=== PATIENT | female | born 1975 | race Hispanic/Latino ===

== ENCOUNTER 2016-07-06 01:54 | Emergency (ER) | payer OTHER ==
[2016-07-06 02:02] VITALS: BMI 26.6
--- NOTE | 2016-07-06 02:15 | ED PDOC ---
Arrival/HPI - General Time Seen by Provider: 07/06/16 01:59 Historian: Patient - History of Present Illness Narrative History of Present Illness (Text): 07/06/16 02:12 Hanna Baxter is a 41 year old female, with a history of bipolar disorder and WPW syndrome, presents to the emergency department complaining of left sided chest pain radiating to left arm for past 20 minutes. States that symptoms are accompanied with occasional palpitations. Denies any fever, chills, headache, dizziness, nausea, vomiting, diaphoresis, weakness, back pain, urinary symptoms , or any other complaints at this time. Time/Duration: 1/2 hour Symptom Onset: Gradual Symptom Course: Unchanged Severity Level: Mild Activities at Onset: Light Past Medical History - Provider Review Nursing Documentation Reviewed: Yes - Past History Past History: No Previous - Infectious Disease Hx of Infectious Diseases: None - Tetanus Immunization Tetanus Immunization: Unknown - Past Medical History Past Medical History: No Previous - Hematological/Oncological Hx Blood Transfusions: No Hx Blood Transfusion Reaction: No - Musculoskeletal/Rheumatological Hx Falls: Yes - Psychiatric Hx Depression: Yes (STATES SHE SEES A PSYCHIATRIST) Hx Emotional Abuse: No (unknown) Hx Physical Abuse: No (unknown) Hx Substance Use: No - Past Surgical History Past Surgical History: Unable to Obtain - Surgical History Hx Amputation: No Hx Appendectomy: No Hx Cholecystectomy: No Hx Gastric Bypass Surgery: No Hx Hysterectomy: No Hx Inguinal Hernia Repair: No - Anesthesia Hx Anesthesia Reactions: No Hx Malignant Hyperthermia: No - Suicidal Assessment Feels Threatened In Home Enviroment: No Family/Social History - Physician Review Nursing Documentation Reviewed: Yes Family/Social History: No Known Family HX Smoking Status: Current Some Days Smoker Hx Alcohol Use: Yes (UNABLE TO TELL HOW MUCH FOR NOW BUT MENTIONED DRANK A BIG GLASS OF CLUB SOD) Hx Substance Use: No Hx Substance Use Treatment: No Allergies/Home Meds Allergies/Adverse Reactions: Allergies diphenhydramine [From Benadryl] Allergy (Verified 07/06/16 02:00) RASH peanut Allergy (Verified 07/06/16 02:00) ANGIOEDEMA shellfish derived Allergy (Verified 07/06/16 02:00) ANGIOEDEMA Home Medications: Home Meds Medication Instructions Recorded Confirmed [place] Carbonate [[place] Carb] 300 mg PO TID 04/27/12 11/30/13 Review of Systems - Physician Review All systems were reviewed & negative as marked: Yes - Review of Systems Constitutional: Normal. absent: Fatigue, Fevers Respiratory: Normal. absent: SOB, Cough, Sputum Cardiovascular: Chest Pain, Palpitations Gastrointestinal: Normal. absent: Abdominal Pain, Nausea, Vomiting Genitourinary Female: Normal Musculoskeletal: Other (left arm numbness ) Neurological: Normal. absent: Headache, Dizziness Psychiatric: Normal Physical Exam Vital Signs Reviewed: Yes Vital Signs Temp Pulse Resp BP Pulse Ox 07/06/16 04:00 64 16 129/79 97 07/06/16 02:15 98.2 F 62 16 135/92 H 99 Temperature: Afebrile Blood Pressure: Normal Pulse: Regular Respiratory Rate: Normal Appearance: Positive for: Well-Appearing, Non-Toxic, Comfortable Pain Distress: None Mental Status: Positive for: Alert and Oriented X 3 - Systems Exam Head: Present: Atraumatic, Normocephalic Pupils: Present: PERRL Extroacular Muscles: Present: EOMI Conjunctiva: Present: Normal Mouth: Present: Moist Mucous Membranes Respiratory/Chest: Present: Clear to Auscultation, Good Air Exchange. No: Respiratory Distress, Accessory Muscle Use Cardiovascular: Present: Regular Rate and Rhythm, Normal S1, S2. No: Murmurs Abdomen: Present: Normal Bowel Sounds. No: Tenderness, Distention, Peritoneal Signs Upper Extremity: Present: Normal Inspection. No: Cyanosis, Edema Lower Extremity: Present: Normal Inspection. No: Edema Neurological: Present: GCS=15, CN II-XII Intact, Speech Normal, Motor Func Grossly Intact, Normal Sensory Function Skin: Present: Warm, Dry, Normal Color. No: Rashes Psychiatric: Present: Alert, Oriented x 3, Normal Insight, Normal Concentration Medical Decision Making ED Course and Treatment: 07/06/16 02:17 Impression: A 41 year old female who presents to the emergency department complaining of left sided chest pain radiating to left arm for past 20 minutes. Plan: -- EKG -- Labs, cardiac enzymes -- Chest X-ray -- Reassess and disposition Progress Notes: 07/06/16 04:30 Chest X-ray interpreted by me: No acute processes. EKG interpreted by me: NSR @ 66 bpm. No acute changes. 07/06/16 04:43 The patient is choosing to leave against medical advice. I have personally explained to the patient that choosing to do so may result in permanent bodily harm or . I have discussed at great length that without further evaluation and monitoring there may be unforeseen circumstances and/or deterioration causing permanent bodily harm or as a result of their choice. The patient is alert, oriented, and shows the mental capacity to make clear decisions regarding the patients health care at this time. The patient continues to wish to leave against medical advice. The patient has been advised that they should return to the emergency room immediately if they change their mind at any time, or if their condition begins to change or worsen in any way.. - Lab Interpretations Lab Results: 07/06/16 02:45 07/06/16 02:45 Lab Results 07/06/16 02:45: WBC 11.3 H D, RBC 3.90, Hgb 12.2, Hct 36.4, MCV 93.3, MCH 31.3, MCHC 33.5, RDW 12.4, Plt Count 300, MPV 9.8 07/06/16 02:45: Sodium 137, Potassium 3.6, Chloride 103, Carbon Dioxide 28, Anion Gap 10, BUN 15, Creatinine 0.7, Est GFR ( Amer) > 60, Est GFR (Non- Af Amer) > 60, Random Glucose 106, Calcium 9.1, Total Bilirubin 0.3, AST 25, ALT 29, Alkaline Phosphatase 81, Lactate Dehydrogenase 304 L, Total Creatine Kinase 37, Troponin I < 0.01, Total Protein 6.4, Albumin 3.7, Globulin 2.7, Albumin/Globulin Ratio 1.4 07/06/16 02:45: PT 10.0, INR 0.93, APTT 27.9 - RAD Interpretation Radiology Orders: 07/06/16 02:02 CHEST PORTABLE [RAD] Stat - Medication Orders Current Medication Orders: Discontinued Medications Aspirin (Aspirin) 325 mg PO ONCE STA Stop: 07/06/16 04:30 Last Admin: 07/06/16 04:46 Dose: - Scribe Statement The provider has reviewed the documentation as recorded by the Bryan Dowd Provider Attestation: All medical record entries made by the Mireyaibangela were at my direction and personally dictated by me. I have reviewed the chart and agree that the record accurately reflects my personal performance of the history, physical exam, medical decision making, and the department course for this patient. I have also personally directed, reviewed, and agree with the discharge instructions and disposition. Disposition/Present on Arrival - Present on Arrival Any Indicators Present on Arrival: No History of DVT/PE: No History of Uncontrolled Diabetes: No Urinary Catheter: No History Surgical Site Infection Following: None - Disposition Have Diagnosis and Disposition been Completed?: Yes Diagnosis: Chest pain Disposition: AGAINST MEDICAL ADVICE Disposition Time: 04:40 Condition: GOOD Discharge Instructions (ExitCare): Chest Pain (ED) Referrals: Aashish Hayes, [Non-Staff] - Follow up with primary
[2016-07-06 02:19] VITALS: RESP 16; TEMP 98.2
[2016-07-06 02:56] LABS: HEMATOCRIT 36.4 % (36.0-48.0); MEAN CELL VOLUME 93.3 fL (80.0-105.0); MEAN CORPUSCULAR HEMOGLOBIN 31.3 pg (25.0-35.0); MEAN CORPUSCULAR HGB CONC 33.5 g/dl (31.0-37.0); MEAN PLATELET VOLUME 9.8 fl (7.0-11.0); RED CELL DISTRIBUTION WIDTH 12.4 % (11.5-14.5); WHITE BLOOD COUNT 11.3 [, 10^3/ul] (4.5-11.0)
[2016-07-06 03:08] LABS: INR 0.93 (0.93-1.08); PARTIAL THROMBOPLASTIN TIME 27.9 Seconds (23.7-30.8)
[2016-07-06 03:19] LABS: ALB/GLOB RATIO 1.4 (1.1-1.8); ALKALINE PHOSPHATASE 81 U/L (38-133); ALT/SGPT 29 U/L (7-56); AST/SGOT 25 U/L (15-39); BILIRUBIN,TOTAL 0.3 mg/dL (0.2-1.3); BLOOD UREA NITROGEN 15 mg/dL (7-21); CALCIUM 9.1 mg/dL (8.4-10.5); CARBON DIOXIDE 28 mmol/L (21-33); CHLORIDE 103 mmol/L (98-107); GFR AFRICAN-AMERICAN > 60; GLUCOSE,RANDOM 106 mg/dL (70-110); POTASSIUM 3.6 mmol/L (3.6-5.0); SODIUM 137 mmol/L (132-148); TOTAL PROTEIN 6.4 g/dL (5.8-8.3)
[2016-07-06 03:34] LABS: TROPONIN I < 0.01 ng/mL
[2016-07-06 04:16] VITALS: BP 129/79; PULSE 64; O2SAT 97
--- NOTE | 2016-07-06 07:55 | RAD ---
HISTORY: chest pain COMPARISON: Comparison is made to 04/27/2012 FINDINGS: LUNGS: No active pulmonary disease. PLEURA: No significant pleural effusion identified, no pneumothorax apparent. CARDIOVASCULAR: Normal. OSSEOUS STRUCTURES: No significant abnormalities. VISUALIZED UPPER ABDOMEN: Normal. OTHER FINDINGS: None. IMPRESSION: No active disease.
--- NOTE | 2016-07-06 09:54 | CARD ---
APPROVED REPORT EKG Measurement Heart [id number] <Conclusion> Normal sinus rhythm Normal ECG
== END 2016-07-06 04:46 | disposition left against medical advice (07) ==
LOC: ED 01:54
DX: R07.9 Chest pain, unspecified (principal)

== ENCOUNTER 2016-09-16 19:53 | Observation (INO) | payer OTHER ==
[2016-09-16 20:05] VITALS: BMI 28.3
[2016-09-16 20:09] VITALS: RESP 18; TEMP 98.6
[2016-09-16] MEDS ORDERED: Alum-Mag Hydrox-Simethicone Susp (30 mL) PO STA (20:27)
[2016-09-16] MEDS ORDERED: Sodium Chloride 0.9% 1,000 ML IV STA (20:27)
--- NOTE | 2016-09-16 20:38 | ED PDOC ---
Arrival/HPI - General Chief Complaint: Abdominal Pain Time Seen by Provider: 09/16/16 20:07 - History of Present Illness Narrative History of Present Illness (Text): 09/16/16 20:34 CC: abdominal pain RLQ 2 days This patient is a 41yo F w/ a PMHx of WPW syndrome s/p ablation, anxiety/ bipolar disorder, polysubstance abuse who is presenting to the ED for a 2d history of unrelenting RLQ pain. Patient states she has had kidney stones in the past and this pain feels uniquely different than her kidney stones. Denies any abdominal surgeries. Passing flatus and BM; BM are painful in the RLQ as well as the rectum. The patient admits to one episode of vomiting today, does not have the desire to eat as well. Deneis fevers/chills, SIERRA, CP, SOB, diarrhea , dysuria/freq/urg, or lower extremity pain/swelling. PMhx: WPW syndrome, anxiety/bipolar disorder, polysubstance abuse Meds: [place] and some other unknown mood stabilizing enhancer Surgeries: Denies; however got stitches one week ago "here" even though we have no record of it FamHx: Denies Allergies: Benadryl, Peanuts, Shellfish Social: Lives at home, denies EtOH, admits to 1ppd for 30 years, denies other illicit drugs although has history of polysubstance abuse (Robe He) Past Medical History - Provider Review Nursing Documentation Reviewed: Yes - Travel History Have you recently traveled outside [place] w/in the past 3 mons?: No - Past History Past History: No Previous - Infectious Disease Hx of Infectious Diseases: None - Tetanus Immunization Tetanus Immunization: Unknown - Past Medical History Past Medical History: No Previous - Hematological/Oncological Hx Blood Transfusions: No Hx Blood Transfusion Reaction: No - Musculoskeletal/Rheumatological Hx Falls: Yes - Gastrointestinal Hx Gastrointestinal Disorders: No - Genitourinary/Gynecological Hx Genitourinary Disorders: No - Psychiatric Hx Psychophysiologic Disorder: Yes Hx Depression: Yes (STATES SHE SEES A PSYCHIATRIST) Hx Emotional Abuse: No (unknown) Hx Physical Abuse: No (unknown) Hx Substance Use: No - Past Surgical History Past Surgical History: Unable to Obtain - Surgical History Hx Amputation: No Hx Appendectomy: No Hx Cholecystectomy: No Hx Gastric Bypass Surgery: No Hx Hysterectomy: No - Anesthesia Hx Anesthesia: No Hx Anesthesia Reactions: No Hx Malignant Hyperthermia: No - Suicidal Assessment Feels Threatened In Home Enviroment: No Family/Social History - Physician Review Nursing Documentation Reviewed: Yes Family/Social History: No Known Family HX Smoking Status: Heavy Smoker > 10 Cigarettes Daily Hx Alcohol Use: Yes Frequency of alcohol use: Socially Hx Substance Use: No Hx Substance Use Treatment: No Allergies/Home Meds Allergies/Adverse Reactions: Allergies diphenhydramine [From Benadryl] Allergy (Verified 09/16/16 20:04) RASH peanut Allergy (Verified 09/16/16 20:04) ANGIOEDEMA shellfish derived Allergy (Verified 09/16/16 20:04) ANGIOEDEMA Home Medications: Home Meds Medication Instructions Recorded Confirmed [place] Carbonate [[place] Carb] 1,200 mg PO DAILY 04/27/12 09/16/16 Methotrexate Sodium [Trexall] 10 g PO DAILY 09/16/16 09/16/16 Review of Systems - Review of Systems Constitutional: absent: Fatigue, Weight Change, Fevers Eyes: absent: Vision Changes ENT: absent: Hearing Changes, Tinnitus Respiratory: absent: SOB, Cough Cardiovascular: absent: Chest Pain Gastrointestinal: Abdominal Pain, Stool Changes, Nausea, Vomiting. absent: Diarrhea, Appetite Changes, Hematochezia Genitourinary Female: absent: Dysuria, Frequency Musculoskeletal: absent: Arthralgias, Back Pain Skin: absent: Rash, Pruritis Neurological: absent: Headache Endocrine: absent: Diaphoresis Hemo/Lymphatic: absent: Adenopathy, Easy Bleeding Psychiatric: absent: Anxiety Physical Exam Temperature: Afebrile Blood Pressure: Normal Pulse: Regular Respiratory Rate: Normal Appearance: Positive for: Well-Appearing, Non-Toxic (strange affect responding inappropriately to questions) Pain Distress: Mild Mental Status: Positive for: Alert and Oriented X 3 - Systems Exam Head: Present: Atraumatic Pupils: Present: PERRL Extroacular Muscles: Present: EOMI Conjunctiva: Present: Normal Mouth: Present: Moist Mucous Membranes Neck: Present: Normal Range of Motion. No: Meningeal Signs Respiratory/Chest: Present: Clear to Auscultation, Good Air Exchange. No: Respiratory Distress, Accessory Muscle Use Cardiovascular: Present: Regular Rate and Rhythm, Normal S1, S2. No: Murmurs Abdomen: Present: Tenderness (RLQ), Normal Bowel Sounds. No: Distention, Peritoneal Signs, Rebound, Guarding, Rovsing's Sign Present, Hernias, Ostomy Tubes, Mass/Organomegaly, Scars Back: Present: Normal Inspection. No: CVA Tenderness Upper Extremity: Present: Normal Inspection. No: Cyanosis, Edema Lower Extremity: Present: Normal Inspection. 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 Van (Robe He) 09/16/16 22:33 41 yo female c/o abdominal pain. r/o appy vs colitis vs cysstitis. Pelvic exam normal. Agree with resident history and physical, disposition and plan. Abdomen soft. Tender in epigastric and RLQ. Labs reviewed. WBC mildly elevated. UA negative. Case signed out to Dr. Van to f /u CT, reevaluate and disposiition. (Trent Pope) - Lab Interpretations Lab Results: 09/16/16 20:55 09/16/16 20:55 Lab Results 09/16/16 20:55: Alcohol, Quantitative < 10 09/16/16 20:55: Sodium 136, Potassium 3.7, Chloride 103, Carbon Dioxide 24, Anion Gap 13, BUN 9, Creatinine 0.7, Est GFR ( Amer) > 60, Est GFR (Non- Af Amer) > 60, Random Glucose 114 H, Calcium 9.7, Total Bilirubin 0.7, AST 23, ALT 21, Alkaline Phosphatase 57, Total Protein 7.2, Albumin 4.4, Globulin 2.8, Albumin/Globulin Ratio 1.6, Lipase 75 09/16/16 20:55: WBC 11.3 H, RBC 4.07, Hgb 13.0, Hct 38.7, MCV 95.1, MCH 31.9, MCHC 33.6, RDW 12.3, Plt Count 310, MPV 10.0, Gran % 67.0, Lymph % (Auto) 26.2, [place] % (Auto) 4.5, Eos % (Auto) 2.0, Baso % (Auto) 0.3, Gran # 7.54 H, Lymph # 3.0, [place] # 0.5, Eos # 0.2, Baso # 0.03 09/16/16 20:40: Urine Opiates Screen Negative, Urine Methadone Screen Negative, Ur Barbiturates Screen Negative, Ur Phencyclidine Scrn Negative, Ur Amphetamines Screen Negative, U Benzodiazepines Scrn Negative, U Oth Cocaine Metabols Negative, U Cannabinoids Screen Negative 09/16/16 20:40: Urine Color Straw, Urine Appearance Clear, Urine pH 6.0, Ur Specific [place] <= 1.005, Urine Protein Negative, Urine Glucose (UA) Negative, Urine Ketones Negative, Urine Blood Negative, Urine Nitrate Negative, Urine Bilirubin Negative, Urine Urobilinogen 0.2, Ur Leukocyte Esterase Negative, Urine HCG, Qual Negative - RAD Interpretation Radiology Orders: 09/16/16 20:30 ABDOMEN & PELVIS [ABD PELVIS PO & IV CONTRAST] [CT] Stat - Medication Orders Current Medication Orders: Discontinued Medications Al Hydrox/Mg Hydrox/Simethicone (Maalox Plus 30 Ml) 30 ml PO STAT STA Stop: 09/16/16 20:28 Last Admin: 09/16/16 20:50 Dose: 30 ml Sodium Chloride (Sodium Chloride 0.9%) 1,000 mls @ 999 mls/hr IV .Q1H1M STA Stop: 09/16/16 21:27 Last Admin: 09/16/16 20:50 Dose: 999 mls/hr Iodixanol (Visipaque 320 Mg/Ml 100 Ml) Confirm Administered Dose 100 ml IV .STK- MED ONE Stop: 09/16/16 22:00 Iohexol (Omnipaque 240 (50 Ml)) Confirm Administered Dose 50 ml .ROUTE .STK-MED ONE Stop: 09/16/16 21:29 Ketorolac Tromethamine (Toradol) 30 mg IVP STAT STA Stop: 09/16/16 20:34 Last Admin: 09/16/16 20:50 Dose: 30 mg Ondansetron HCl (Zofran Inj) 4 mg IVP STAT STA Stop: 09/16/16 20:28 Last Admin: 09/16/16 20:50 Dose: 4 mg Disposition/Present on Arrival - Present on Arrival Any Indicators Present on Arrival: No History of DVT/PE: No History of Uncontrolled Diabetes: No Urinary Catheter: No History of Decub. Ulcer: No History Surgical Site Infection Following: None - Disposition Have Diagnosis and Disposition been Completed?: No Disposition Time: 22:29 - Disposition Diagnosis: Abdominal pain Condition: FAIR Referrals: PCP,NO [Primary Care Provider] - Follow up with primary
[2016-09-16 20:59] LABS: URINE BILIRUBIN NEGATIVE (NEGATIVE); URINE BLOOD NEGATIVE (NEGATIVE); URINE GLUCOSE (UA) NEGATIVE (NEGATIVE); URINE LEUKOCYTE ESTERASE NEGATIVE Leu/uL (NEGATIVE); URINE NITRATE NEGATIVE (NEGATIVE); URINE PROTEIN NEGATIVE mg/dL (<30 mg/dL); URINE UROBILINOGEN 0.2 E.U./dL (<1 E.U./dL)
[2016-09-16 21:08] LABS: BASO # 0.03 K/mm3 (0.0-2.0); BASO % 0.3 % (0.0-3.0); EOS # 0.2 (0.0-0.7); GRAN # 7.54 (1.4-6.5); LYMPH % 26.2 % (22.0-35.0); MEAN CELL VOLUME 95.1 fL (80.0-105.0); MEAN CORPUSCULAR HEMOGLOBIN 31.9 pg (25.0-35.0); MEAN CORPUSCULAR HGB CONC 33.6 g/dl (31.0-37.0); MONO # 0.5 (0.1-0.6); MONO % 4.5 % (1.0-6.0); PLATELET COUNT 310 10^3/uL (120.0-450.0); RBC 4.07 10^6/uL (3.5-6.1); RED CELL DISTRIBUTION WIDTH 12.3 % (11.5-14.5); WHITE BLOOD COUNT 11.3 10^3/ul (4.5-11.0)
[2016-09-16 21:10] LABS: HCG,QUALITATIVE URINE NEGATIVE (NEGATIVE); URINE APPEARANCE CLEAR (CLEAR); URINE COLOR STRAW (YELLOW)
[2016-09-16 21:18] LABS: BARBITURATES, UR NEGATIVE (NEGATIVE); BENZODIAZEPINES, UR NEGATIVE (NEGATIVE); OPIATES, UR NEGATIVE (NEGATIVE); PHENCYCLIDINE, UR NEGATIVE (NEGATIVE)
[2016-09-16 21:18] LABS: ALB/GLOB RATIO 1.6 (1.1-1.8); ALBUMIN 4.4 g/dL (3.0-4.8); ALT/SGPT 21 U/L (7-56); AST/SGOT 23 U/L (15-39); BLOOD UREA NITROGEN 9 mg/dL (7-21); CALCIUM 9.7 mg/dL (8.4-10.5); GFR AFRICAN-AMERICAN > 60; GFR NON-AFRICAN AMERICAN > 60; LIPASE 75 U/L (23-300)
[2016-09-16] MEDS ORDERED: Iohexol 240 (50 ml) ONE (21:28)
[2016-09-16] MEDS ORDERED: Iodixanol 320 MG/ML 100 ML BOTTLE IV ONE (21:59)
--- NOTE | 2016-09-16 22:33 | ED PDOC ---
Physical Exam Vital Signs Temp Pulse Resp BP Pulse Ox 09/16/16 22:29 62 18 150/89 100 09/16/16 20:08 98.6 F 73 18 134/91 H 98 Medical Decision Making ED Course and Treatment: 09/16/16 22:30 Patient signed out to me by Dr. Pope due to change of shift. Pending CT results. Patient presents with abdominal RLQ tenderness, labs unremarkable. - Lab Interpretations Lab Results: 09/16/16 20:55 09/16/16 20:55 Lab Results 09/16/16 20:55: Alcohol, Quantitative < 10 09/16/16 20:55: Sodium 136, Potassium 3.7, Chloride 103, Carbon Dioxide 24, Anion Gap 13, BUN 9, Creatinine 0.7, Est GFR ( Amer) > 60, Est GFR (Non- Af Amer) > 60, Random Glucose 114 H, Calcium 9.7, Total Bilirubin 0.7, AST 23, ALT 21, Alkaline Phosphatase 57, Total Protein 7.2, Albumin 4.4, Globulin 2.8, Albumin/Globulin Ratio 1.6, Lipase 75 09/16/16 20:55: WBC 11.3 H, RBC 4.07, Hgb 13.0, Hct 38.7, MCV 95.1, MCH 31.9, MCHC 33.6, RDW 12.3, Plt Count 310, MPV 10.0, Gran % 67.0, Lymph % (Auto) 26.2, [place] % (Auto) 4.5, Eos % (Auto) 2.0, Baso % (Auto) 0.3, Gran # 7.54 H, Lymph # 3.0, [place] # 0.5, Eos # 0.2, Baso # 0.03 09/16/16 20:40: Urine Opiates Screen Negative, Urine Methadone Screen Negative, Ur Barbiturates Screen Negative, Ur Phencyclidine Scrn Negative, Ur Amphetamines Screen Negative, U Benzodiazepines Scrn Negative, U Oth Cocaine Metabols Negative, U Cannabinoids Screen Negative 09/16/16 20:40: Urine Color Straw, Urine Appearance Clear, Urine pH 6.0, Ur Specific [place] <= 1.005, Urine Protein Negative, Urine Glucose (UA) Negative, Urine Ketones Negative, Urine Blood Negative, Urine Nitrate Negative, Urine Bilirubin Negative, Urine Urobilinogen 0.2, Ur Leukocyte Esterase Negative, Urine HCG, Qual Negative - RAD Interpretation Radiology Orders: 09/16/16 20:30 ABDOMEN & PELVIS [ABD PELVIS PO & IV CONTRAST] [CT] Stat - Medication Orders Current Medication Orders: Discontinued Medications Al Hydrox/Mg Hydrox/Simethicone (Maalox Plus 30 Ml) 30 ml PO STAT STA Stop: 09/16/16 20:28 Last Admin: 09/16/16 20:50 Dose: 30 ml Sodium Chloride (Sodium Chloride 0.9%) 1,000 mls @ 999 mls/hr IV .Q1H1M STA Stop: 09/16/16 21:27 Last Admin: 09/16/16 20:50 Dose: 999 mls/hr Iodixanol (Visipaque 320 Mg/Ml 100 Ml) Confirm Administered Dose 100 ml IV .STK- MED ONE Stop: 09/16/16 22:00 Iohexol (Omnipaque 240 (50 Ml)) Confirm Administered Dose 50 ml .ROUTE .STK-MED ONE Stop: 09/16/16 21:29 Ketorolac Tromethamine (Toradol) 30 mg IVP STAT STA Stop: 09/16/16 20:34 Last Admin: 09/16/16 20:50 Dose: 30 mg Re-Assess: MAR Pain Assessment Document 09/16/16 21:50 GI (Rec: 09/16/16 23:14 GI [id number]) Pain Reassessment Is this a pain reassessment? Yes Sleep Is patient sleeping during reassessment? No Presence of Pain Presence of Pain No Morphine Sulfate (Morphine) 2 mg IVP STAT STA Stop: 09/16/16 22:56 Last Admin: 09/16/16 23:06 Dose: 2 mg Ondansetron HCl (Zofran Inj) 4 mg IVP STAT STA Stop: 09/16/16 20:28 Last Admin: 09/16/16 20:50 Dose: 4 mg Ondansetron HCl (Zofran Inj) 4 mg IVP STAT STA Stop: 09/16/16 22:56 Last Admin: 09/16/16 23:06 Dose: 4 mg ED OBSERVATION Discharge: Yes Date of observation admission: 09/16/16 Time of observation admission: 22:45 - Observation admission statement Patient is being placed in observation because:: abd pain - Goals of Observation Goals of observation are:: CT abdomen - Progress Note Progress Note: [address] 2317 Patient having pain again, morphine administered. 0019 1. The pancreatic duct is borderline prominent in the proximal body measuring up to 4 mm. It is difficult to exclude underlying abnormality perhaps near the pancreatic head. These correlate clinically and if indicated this could be further evaluated with MRCP or ERCP. 2. Question mild wall thickening of the rectosigmoid versus underdistention. 3. A normal appendix is identified. Patient discharged, f/u PMD, copy of CT provided, return to ER for worsening pain, fever, vomiting, or any other problem. - Scribe Statement The provider has reviewed the documentation as recorded by the Bryan Jacob Provider Scribe Attestation: All medical record entries made by the Bryan were at my direction and personally dictated by me. I have reviewed the chart and agree that the record accurately reflects my personal performance of the history, physical exam, medical decision making, and the department course for this patient. I have also personally directed, reviewed, and agree with the discharge instructions and disposition. Disposition/Present on Arrival - Present on Arrival Any Indicators Present on Arrival: No History of DVT/PE: No History of Uncontrolled Diabetes: No Urinary Catheter: No History of Decub. Ulcer: No History Surgical Site Infection Following: None - Disposition Have Diagnosis and Disposition been Completed?: Yes Diagnosis: Abdominal pain Disposition: HOME/ ROUTINE Disposition Time: 00:20 Patient Plan: Discharge Patient Problems: Current Active Problems Problem Status Onset Abdominal pain Acute Condition: STABLE
[2016-09-16] MEDS ORDERED: Morphine 2 mg/ml ISec IVP STA (22:55)
[2016-09-17 00:42] VITALS: BP 133/87; PULSE 72; O2SAT 98
--- NOTE | 2016-09-17 08:23 | CT ---
PROCEDURE: CT Abdomen and Pelvis with contrast HISTORY: RLQ pain COMPARISON: 11/29/2013. TECHNIQUE: CT scan of the abdomen and pelvis was performed after intravenous administration of contrast. Oral contrast was administered. Coronal and sagittal reformatted images were obtained. Contrast dose: 100 mL Visipaque Radiation dose: Total exam DLP = 541.83 simmons mGy-cm. This CT exam was performed using one or more of the following dose reduction techniques: Automated exposure control, adjustment of the mA and/or kV according to patient size, and/or use of iterative reconstruction technique. FINDINGS: LOWER THORAX: The lung bases are clear. LIVER: The liver is normal in size and there is homogeneous enhancement. No gross lesion or ductal dilatation. GALLBLADDER AND BILE DUCTS: There are no calcified gallstones. PANCREAS: The pancreas is normal in size and there is homogeneous enhancement. No gross lesion or ductal dilatation. SPLEEN: The spleen is normal in size and there is homogeneous enhancement. ADRENALS: Both adrenal glands are normal in size without discrete nodule. KIDNEYS AND URETERS: Both kidneys are normal in size and there is homogeneous enhancement. No hydronephrosis. No solid mass. VASCULATURE: No aortic aneurysm. BOWEL: There is apparent mild mural thickening in the distal descending colon and sigmoid colon. . The small bowel loops are normal caliber APPENDIX: Normal appendix. PERITONEUM: No free fluid. No free air. LYMPH NODES: No enlarged lymph nodes. BLADDER: Normal in appearance. REPRODUCTIVE: The uterus is normal in size. BONES: No acute fracture. There is mild multilevel degenerative disc disease in the lower thoracic spine. OTHER FINDINGS: None. IMPRESSION: 1. Apparent mild mural thickening in the distal descending and sigmoid colon is strictly nonspecific and could be related to underdistention however nonspecific acute colitis cannot be entirely excluded. Clinical correlation and follow-up is advised. 2. No CT evidence for acute appendicitis. A preliminary report was provided by [facility].
== END 2016-09-17 00:20 | disposition home or self-care (01) ==
LOC: ED 19:53 → EROBSV 22:45
PROVIDERS: ADMIT Student in an Organized Health Care Education/Training Program; ATTEND Student in an Organized Health Care Education/Training Program
DX: R10.31 Right lower quadrant pain (principal)
CPT/HCPCS: 74177; 80053; 80320; 80324; 80345; 80346; 80349; 80353; 80358; 80361; 81003; 83690; 83992; 84703; 85025; 96361; 96374; 96375; 96376; 99284; G0378; J1885; J2270; J2405; J7040; Q9966; Q9967